=== PATIENT | female | born 1960 | race Caucasian/White ===

== ENCOUNTER → 2022-12-09 | Outpatient (CLI) | payer OTHER ==
[~2022-12-09] MED LIST: ACET-907 PO
== END ==
LOC: M SOG 09:44
PROVIDERS: ATTEND Orthopaedic Surgery Hand Surgery
DX: Z53.9 Procedure and treatment not carried out, unspecified reason (principal)

== ENCOUNTER 2022-12-10 06:16 | Day surgery (SDC) | payer OTHER ==
[~2022-12-10] VITALS: Ht 162.6 cm; Wt 58.5 kg
[2022-12-10] MEDS ORDERED: ACET-907 PO (06:42)
[2022-12-10] MEDS ORDERED: ceFAZolin SOD 2 GM in IV 1 EA IV ONE (06:45)
[2022-12-10] MEDS ORDERED: SCOPOLAMINE 1MG TRANSDERMAL PATCH TOP ONE (07:05)
[2022-12-10] MEDS ORDERED: LR 1,000 ML IV SCH (07:05)
[2022-12-10] MEDS ORDERED: fentaNYL 100 MCG/2 ML INJECTION IV PRN (07:10)
[2022-12-10] MEDS ORDERED: EPINEPHrine INJ 1 MG/ML 1ML AMP PN ONE (07:10)
[2022-12-10] MEDS ORDERED: LIDOCAINE 1% SDV 5ML VIAL PN ONE (07:10)
[2022-12-10] MEDS ORDERED: ROPIvacaine 0.5% 30ML VIAL PN ONE (07:10)
[2022-12-10] MEDS ORDERED: dexAMETHasone 10MG/1ML VIAL PRES.FREE PN ONE (07:10)
[2022-12-10] MEDS: MIDAZOLAM INJ 2MG/2ML VIAL IV PRN ×2 (07:25→07:27)
[2022-12-10] MEDS ORDERED: BACITRACIN OINTMENT 30GM TUBE As Ordered ONE (07:28)
[2022-12-10] MEDS ORDERED: LIDOCAINE 2% 100MG/5ML SDV (FOR ANES.) As Ordered ONE (08:12)
[2022-12-10] MEDS ORDERED: dexmedeTOMIDine (4MCG/ML)200MCG/50ML BTL (PRECEDEX) As Ordered ONE (08:12)
[2022-12-10] MEDS ORDERED: ONDANSETRON 4MG 2ML VIAL As Ordered ONE (08:12)
[2022-12-10] MEDS ORDERED: KETAMINE HCL 200MG/20ML VIAL As Ordered ONE (08:12)
[2022-12-10] MEDS ORDERED: ACETAMINOPHEN 1000MG 100ML IV BAG As Ordered ONE (08:12)
[2022-12-10] MEDS ORDERED: KETOROLAC 60MG 2ML VIAL As Ordered ONE (08:12)
[2022-12-10] MEDS ORDERED: propofoL 200 MG/20 ML VIAL As Ordered ONE (08:12)
[2022-12-10 11:39] VITALS: BP 116/79; TEMP 97.6; O2SAT 99
== END 2022-12-10 11:36 | disposition home or self-care (01) ==
LOC: M SDC 06:16
PROVIDERS: ATTEND Orthopaedic Surgery Hand Surgery
DX: S52.501A Unspecified fracture of the lower end of right radius, initial encounter for closed fracture (principal); X58.XXXA Exposure to other specified factors, initial encounter; Y92.89 Other specified places as the place of occurrence of the external cause; Z87.891 Personal history of nicotine dependence
CPT/HCPCS: 25607; 76000; 93005; C1713; J0131; J0665; J0690; J1885; J2250; J2405; J3010

== ENCOUNTER → 2022-12-19 | Outpatient (CLI) | payer OTHER | LOC: M SOG 08:06 | PROVIDERS: ATTEND Physician Assistant | DX: S52.501D Unspecified fracture of the lower end of right radius, subsequent encounter for closed fracture with routine healing (principal); X58.XXXD Exposure to other specified factors, subsequent encounter ==

== ENCOUNTER → 2023-01-22 | Outpatient (CLI) | payer OTHER | LOC: M SOG 09:31 | PROVIDERS: ATTEND Physician Assistant | DX: S52.501D Unspecified fracture of the lower end of right radius, subsequent encounter for closed fracture with routine healing (principal) ==

== ENCOUNTER → 2023-12-30 | Outpatient (CLI) | payer OTHER | LOC: M SOG 11:08 | PROVIDERS: ATTEND Physician Assistant | DX: S52.501D Unspecified fracture of the lower end of right radius, subsequent encounter for closed fracture with routine healing (principal); Y93.9 Activity, unspecified; Y92.9 Unspecified place or not applicable ==